=== PATIENT | male | born 1985 | race Caucasian/White ===

== ENCOUNTER 2022-12-22 10:00 | Inpatient (IN) | payer SELFPAY ==
[~2022-12-22 10:00] MED LIST: Iopamidol-370 76% 500 ML MDV (1 ML CHARGE) ONE
[2022-12-22] MEDS ORDERED: Ondansetron PF 4 MG/2 ML Vial ONE ×2 (10:11→13:34)
[2022-12-22 10:17] LABS: Hematocrit 47.8 % (42.0-52.0); Hemoglobin 17.5 g/dL (14.0-18.0); Mean Corpuscular HGB CONC 36.6 g/dL (32.0-36.0); Mean Corpuscular Hemoglobin 33.1 pg (27.0-31.0); Mean Corpuscular Volume 90.4 fl (78.0-98.0); Mean Platelet Volume 10.5 fL (7.4-10.4); Platelet Count 197 10x3/uL (130-400); RBC Distribution Width 12.3 % (11.5-14.5); Red Blood Cell (RBC) Count 5.29 mill/uL (4.70-6.10); White Blood Cell (WBC) Count 10.8 10x3/uL (4.8-10.8)
[2022-12-22 10:20] LABS: Delete Auto Diff?? YES; Manual Diff?? YES
[2022-12-22 10:43] LABS: ALT (SGPT) 31 U/L (8-55); AST (SGOT) 27 U/L (5-34); Albumin 4.9 g/dL (3.5-5.0); Alkaline Phosphatase 66 U/L (40-110); Anion Gap 22 mmol/L (10-20); BUN (Urea Nitrogen) 23 mg/dL (8.9-20.6); Bilirubin, Total 0.4 mg/dL (0.2-1.2); Calc. Creatinine Clearance 0 mL/min (70-130); Calcium 10.2 mg/dL (7.8-10.44); Carbon Dioxide 20 mmol/L (22-29); Chloride 94 mmol/L (98-107); Estimated GFR 68; Globulin 3.5 g/dL (2.4-3.5); Glucose 143 mg/dL (70-105); Lipase 6 U/L (8-78); Potassium 3.4 mmol/L (3.5-5.1); Protein, Total 8.4 g/dL (6.0-8.3); Sodium 133 mmol/L (136-145)
[2022-12-22 10:48] LABS: Anisocytosis SLIGHT = 6-15 cells HPF (0-5); Band 22 % (5-11); CellaVision Operator ID LAB.CMB; Lymphocytes 9 % (21-51); Macrocytosis SLIGHT = 6-15 cells HPF (0-5); Monocytes 6 % (0-10); Neutrophil 59 % (42-75); Plasma Cells 1 % (0-0); Platelet Adequacy Comment Platelets Normal; Reactive Lymphocytes 3 % (0-10); Total Cell Count 107
[2022-12-22 12:06] LABS: Bacteria/HPF None Seen HPF (None Seen); Bilirubin Negative (Negative); Blood, Urine 1+ (Negative); CAUTI Indications for Culture Pelvic or flank pain; Clarity Clear (Clear); Glucose, Urine (Dipstick) Normal (Negative); Ketone, Urine Negative (Negative); Leukocyte Negative Leu/uL (Negative); Nitrite Negative (Negative); Protein, Urine (Dipstick) 50 mg/dL (Neg-Trace); RBC/HPF 0-3 HPF (0-3); Squamous Epithelial None Seen HPF (0-3); Urobilinogen Normal mg/dL (Less than 2); WBC/HPF 0-3 HPF (0-3)
[2022-12-22 12:14] LABS: Specific Gravity, Urine Greater than 1.060 (1.002-1.036)
[2022-12-22 12:15] LABS: Urine Culture Reflex No No
[2022-12-22] MEDS ORDERED: Azithromycin 500 MG VIAL ONE (12:43)
[2022-12-22] MEDS ORDERED: Acetaminophen 325 MG TAB PO PRN ×2 (14:00→14:07)
[2022-12-22] MEDS ORDERED: Ondansetron ODT 4 MG TAB SL PRN (14:00)
[2022-12-22] MEDS ORDERED: Lactated Ringer's 1,000 ML IV SCH (14:00)
[2022-12-22] MEDS ORDERED: Ondansetron PF 4 MG/2 ML Vial IVP PRN ×2 (14:00→14:07)
[2022-12-22] MEDS ORDERED: Acetaminophen 650 MG Suppository PR PRN (14:07)
[2022-12-22] MEDS ORDERED: Ondansetron ODT 4 MG TAB PO PRN (14:07)
[2022-12-22] MEDS ORDERED: Electrolyte Replacement Protocol 1 EACH FS SCH (14:15)
[2022-12-22] MEDS ORDERED: Electrolyte Replacement Protocol FS PRN (14:45)
[2022-12-22] MEDS ORDERED: Potassium Bicarbonate/Cit Ac 20 MEQ TAB PER TUBE SCH (14:45)
[2022-12-22 14:46] LABS: Amphetamine Not Detected (NotDetected); Barbiturates Screen Not Detected (NotDetected); Benzodiazepine Screen Detected (NotDetected); Cocaine Metabolite Screen Detected (NotDetected); Methadone Not Detected (NotDetected); Methamphetamine Not Detected (NotDetected); Opiate Screen Not Detected (NotDetected); Oxycodone Screen Not Detected (NotDetected); Phencyclidine (PCP) Not Detected (NotDetected); THC/Cannabinoid Screen Detected (NotDetected); Tricyclic Screen Not Detected (NotDetected)
[2022-12-22 14:54] LABS: Legionella Urinary Ag Negative (Negative)
[2022-12-22 15:04] VITALS: BMI 23.0
[2022-12-22] MEDS: Potassium Chloride 20 MEQ in Lactated Ringer's 1,000 ML IV SCH ×2 (15:26→21:55)
[2022-12-22] MEDS ORDERED: Potassium Chloride 20 MEQ TAB PO SCH (15:45)
[2022-12-22 17:35] LABS: Lactic Acid 1.8 mmol/L (0.5-2.2)
[2022-12-22 17:47] LABS: ALT (SGPT) 24 U/L (8-55); AST (SGOT) 20 U/L (5-34); Albumin 3.8 g/dL (3.5-5.0); Alkaline Phosphatase 48 U/L (40-110); Anion Gap 16 mmol/L (10-20); BUN (Urea Nitrogen) 17 mg/dL (8.9-20.6); Bilirubin, Total 0.3 mg/dL (0.2-1.2); CK (CPK) 58 U/L (30-200); Calc. Creatinine Clearance 108 mL/min (70-130); Calcium 8.5 mg/dL (7.8-10.44); Carbon Dioxide 24 mmol/L (22-29); Chloride 100 mmol/L (98-107); Estimated GFR 99; Globulin 2.4 g/dL (2.4-3.5); Glucose 123 mg/dL (70-105); Potassium 3.5 mmol/L (3.5-5.1); Protein, Total 6.2 g/dL (6.0-8.3); Sodium 136 mmol/L (136-145)
[2022-12-22 18:58] LABS: Hematocrit 39.4 % (42.0-52.0); Mean Corpuscular HGB CONC 35.5 g/dL (32.0-36.0); Mean Corpuscular Hemoglobin 33.1 pg (27.0-31.0); Mean Corpuscular Volume 93.1 fl (78.0-98.0); Mean Platelet Volume 10.8 fL (7.4-10.4); Platelet Count 135 10x3/uL (130-400); RBC Distribution Width 12.6 % (11.5-14.5); Red Blood Cell (RBC) Count 4.23 mill/uL (4.70-6.10)
[2022-12-22 19:04] LABS: Delete Auto Diff?? YES; Manual Diff?? YES
[2022-12-22 19:12] LABS: Potassium 3.5 mmol/L (3.5-5.1)
[2022-12-22 19:37] LABS: Band 47 % (5-11); CellaVision Operator ID LAB.KB; Dohle Bodies SLIGHT; Lymphocytes 4 % (21-51); Monocytes 2 % (0-10); Neutrophil 47 % (42-75); Platelet Adequacy Comment Platelets Normal; Polychromasia SLIGHT = 2-3 cells HPF (0-2); Total Cell Count 101
[2022-12-22] MEDS: Famotidine/PF 20 mg/2ml Vial SLOW IVP SCH (20:30)
[2022-12-22] MEDS ORDERED: Metoclopramide HCl 10 MG/2 ML VIAL IVP SCH (22:00)
[2022-12-23] MEDS: Potassium Chloride 20 MEQ in Lactated Ringer's 1,000 ML IV SCH ×2 (06:08→09:56)
[2022-12-23 07:07] LABS: Hematocrit 37.9 % (42.0-52.0); Hemoglobin 13.4 g/dL (14.0-18.0); Mean Corpuscular HGB CONC 35.4 g/dL (32.0-36.0); Mean Corpuscular Hemoglobin 32.8 pg (27.0-31.0); Mean Corpuscular Volume 92.9 fl (78.0-98.0); Mean Platelet Volume 10.8 fL (7.4-10.4); Platelet Count 137 10x3/uL (130-400); RBC Distribution Width 12.6 % (11.5-14.5); Red Blood Cell (RBC) Count 4.08 mill/uL (4.70-6.10); White Blood Cell (WBC) Count 6.9 10x3/uL (4.8-10.8)
[2022-12-23 07:16] LABS: Delete Auto Diff?? YES; Manual Diff?? YES
[2022-12-23 07:20] LABS: Hemoglobin A1c 5.2 % (4.0-6.0)
[2022-12-23 07:32] LABS: ALT (SGPT) 20 U/L (8-55); AST (SGOT) 17 U/L (5-34); Albumin 3.7 g/dL (3.5-5.0); Alkaline Phosphatase 47 U/L (40-110); Anion Gap 13 mmol/L (10-20); BUN (Urea Nitrogen) 13 mg/dL (8.9-20.6); Bilirubin, Total 0.3 mg/dL (0.2-1.2); Calc. Creatinine Clearance 125 mL/min (70-130); Calcium 8.8 mg/dL (7.8-10.44); Carbon Dioxide 25 mmol/L (22-29); Chloride 99 mmol/L (98-107); Estimated GFR 115; Globulin 2.5 g/dL (2.4-3.5); Glucose 104 mg/dL (70-105); Potassium 3.4 mmol/L (3.5-5.1); Protein, Total 6.2 g/dL (6.0-8.3); Sodium 134 mmol/L (136-145)
[2022-12-23] MEDS: Famotidine/PF 20 mg/2ml Vial SLOW IVP SCH (07:58)
[2022-12-23] MEDS ORDERED: Potassium Chloride 20 MEQ TAB PO SCH (08:00)
[2022-12-23 08:18] LABS: Band 54 % (5-11); CellaVision Operator ID LAB.GE; Lymphocytes 4 % (21-51); Monocytes 5 % (0-10); Neutrophil 36 % (42-75); Platelet Adequacy Comment Platelets Normal; Polychromasia SLIGHT = 2-3 cells HPF (0-2); Reactive Lymphocytes 1 % (0-10); Total Cell Count 99
[2022-12-23 12:56] VITALS: BP 131/74; TEMP 98.8
[2022-12-23 13:18] LABS: Campy jejuni + coli by PCR Negative (Negative); STEC Shiga Toxin 1+2 Negative (Negative); Salmonella spp. by PCR POSITIVE (Negative); Shigella spp + EIEC by PCR Negative (Negative)
[2022-12-23] MEDS ORDERED: metroNIDAZOLE 500 MG TAB PO SCH (15:00)
[2022-12-23] MEDS ORDERED: Ciprofloxacin 500 MG TAB PO SCH (20:00)
== END 2022-12-23 14:47 | disposition left against medical advice (07) | DRG 372 ==
LOC: ERS 10:00 → T4-B 12:52 → OBSVTOIN 12-23 11:56
PROVIDERS: ADMIT Internal Medicine; ATTEND Internal Medicine
DX: A04.8 Other specified bacterial intestinal infections (principal); E87.20 Acidosis, unspecified; N17.9 Acute kidney failure, unspecified; A09 Infectious gastroenteritis and colitis, unspecified; K21.9 Gastro-esophageal reflux disease without esophagitis; F12.10 Cannabis abuse, uncomplicated; Z87.81 Personal history of (healed) traumatic fracture; Z83.3 Family history of diabetes mellitus
CPT/HCPCS: 36415; 36416; 71045; 74177; 80053; 80306; 81001; 82010; 83036; 83605; 83690; 85025; 87040; 87505; 87899; 93005; 96361; 96365; 96375; 96376; G0378; J0456; J2405; J2765; J3480; J7120; Q9967; S0028